=== PATIENT | male | born 1955 | race Caucasian/White ===

== ENCOUNTER 2018-01-30 06:20 | Day surgery (SDC) | payer OTHER, BC ==
[2018-01-29 14:18] VITALS: BMI 38.2
[~2018-01-30 06:20] MED LIST: ceFAZolin SODIUM 1 GM VIAL IVPB ONE
[2018-01-30] MEDS ORDERED: PROPOFOL 20 ML ONE (07:15)
[2018-01-30] MEDS ORDERED: SUCCINYLCHOLINE CHLORIDE 200 MG/10 ML VIAL ONE (07:15)
[2018-01-30] MEDS ORDERED: MIDAZOLAM HCL 2 MG/2 ML SINGLE DOSE VIAL ONE (07:15)
[2018-01-30 07:19] LABS: INR 1.31 (0.82-1.09); PROTHROMBIN TIME (PATIENT) 14.8 SEC (9.7-13.0)
[2018-01-30 07:22] LABS: ACTIVATED PTT 35.5 SECONDS (26.9-34.4)
[2018-01-30] MEDS ORDERED: BUPIVACAINE HCL/PF 0.5% (5MG/ML) 10 ML VIAL ONE (08:00)
[2018-01-30] MEDS ORDERED: BUPIVACAINE 0.75% IN DEXTROSE/PF 2ML AMPULE NR ONE (08:02)
[2018-01-30] MEDS ORDERED: ceFAZolin SODIUM 1 GM VIAL IVPB ONE (08:50)
[2018-01-30] MEDS ORDERED: ceFAZolin SODIUM 1 GM VIAL ONE (08:56)
--- NOTE | 2018-01-30 10:43 | OP ---
Operative Note - Note: Operative Date: 01/30/18 Pre-Operative Diagnosis: Hematuria bladder stone BPH Operation: Evacuation of bladder stone. TURBT. Greenlight laser of Prostate Post-Operative Diagnosis: Same as Pre-op Surgeon: Mark Denny MD. Drains, Volume Out (mls): 20
[2018-01-30] MEDS ORDERED: LACTATED RINGERS SOLUTION 1,000 ML IV SCH (11:00)
[2018-01-30] MEDS ORDERED: oxyCODONE HCL 5 MG TABLET PO PRN ×2 (11:00)
[2018-01-30] MEDS ORDERED: ONDANSETRON 4 MG/2 ML VIAL IVPUSH PRN (11:00)
[2018-01-30 13:55] VITALS: BP 130/74; PULSE 78; TEMP 97.7
--- NOTE | 2018-01-30 21:07 | OP ---
DATE OF OPERATION: 01/30/2018 PREOPERATIVE DIAGNOSES: Hematuria, bladder calculi, and benign prostatic hypertrophy. POSTOPERATIVE DIAGNOSES: Hematuria, bladder calculi, benign prostatic hypertrophy, and bladder tumor. HISTORY: A 62-year-old gentleman who was evaluated previously approximately 3 to 4 years ago, in 2012 and 2013. Patient was lost to followup. He re-presented recently with hematuria, approximately a month and a half ago. Office cystoscopy was performed, at which time, due to the hematuria, unable to determine if any intravesical pathology was present. The patient also had had several prior imaging studies, which showed diverticula and bladder calculi. After discussing treatment options, the patient was elected to undergo a GreenLight laser of the prostate, and a cystoscopy with litholopaxy of bladder calculi. BRIEF OPERATIVE NOTE: Patient brought to the operating room, placed in supine position. Once general anesthesia was administered, the patient was transferred to dorsal lithotomy position, prepped and draped in standard sterile fashion. Intravenous antibiotics were given. At this time, a 26-V[place]an resectoscope sheath was placed into the bladder under direct vision. Multiple clots were evacuated out with the Prim’Vision evacuator. The bladder was then inspected, with multiple, greater than 10, diverticula. There was no evidence of bladder calculi within the diverticula; however, of note was posterior and trigonal bladder tumor, which made visualization of the orifices impossible. There was a small calculus within the lesion, which was then resected using a resecting loop through a 26-V[place]an resectoscope sheath. The bipolar loop was used. Approximately 4 cm of tissue was resected. The base was then cauterized. When then bladder decompressed, it was not bleeding significantly. At this time, a laser scope was placed using a 180-micron GreenLight fiber. The prostate fulgurated using 80 to 120 joules of energy at a time. The area of resection was from the bladder neck to approximately 1.5 cm proximal to the verumontanum. The prostate was resected without difficulty. Approximately 50,000 joules were used. At this time, a wire was placed through the scope. A Councill-tip catheter was placed. A 20-Venezuelan catheter was placed over the wire, and then the Barton was placed to straight drainage and was draining clear urine. WALT SEO M.D. [id number]
--- NOTE | 2018-02-01 15:33 | PATH ---
Surgical Pathology Report Patient Name: JUVE WINCHESTER [facility]. Rec. #: [id number] /Age/Gender: 1955 (Age: 62) / M Account: [id number] Location: [facility] SURGICAL Taken: 01/30/2018 Received: 01/30/2018 Reported: 02/01/2018 Physicians: Mark Denny M.D. 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 NO MUSCULARIS PROPRIA PRESENT FOR EVALUATION. Comment: Immunohistochemical stains (at block 1) performed at [facility] ([id number]) show the tumor cells are positive for CK7, Thrombomodulin, Tona-3 (focal), while negative for CK20, NKX3.1, and Uroplakin. This immunoprofile supports the above diagnosis. Positive and negative controls (internal if applicable) show appropriate results. Interdepartmental case reviewed with consensus on diagnosis. This case was discussed with Dr. Mark Denny on January 30, 2018. Electronically Signed Anselmo Ott M.D. Gross Description Received in formalin, labeled "bladder tumor" are multiple snow fragile, necrotic, irregular portions of soft tissue measuring 4 x 3 x 1.5 cm in aggregate. The specimen is submitted in 4 cassettes. BRONSON/01/30/2018 mary/01/30/2018
== END 2018-01-30 13:45 | disposition home or self-care (01) ==
LOC: JASU-SURG 06:20 → EDSEX 10:00 → JASU-SURG 13:45
PROVIDERS: ATTEND Urology
PROC: 0VT08ZZ Resection of Prostate, Via Natural or Artificial Opening Endoscopic (ICD-10-PCS; principal; 2018-01-30 08:00)
PROC: 0TBB8ZX Excision of Bladder, Via Natural or Artificial Opening Endoscopic, Diagnostic (ICD-10-PCS; 2018-01-30 08:00)
DX: N40.0 Benign prostatic hyperplasia without lower urinary tract symptoms (principal); C67.9 Malignant neoplasm of bladder, unspecified; R31.9 Hematuria, unspecified; N21.0 Calculus in bladder
CPT/HCPCS: 36415; 85610; 85730; 87086; 87186; 88305-TC; 94760